=== PATIENT | female | born 1955 | race Caucasian/White ===

== ENCOUNTER → 2016-11-14 | Outpatient (REF) | payer MEDICARE ==
[~2016-11-14] MED LIST: /BACL20TA PO; /PANT40TA PO; ALLE25CA PO; CYAN1000VL; DULO20CA PO; EPIN0.3I6; NITR0.4S14; RAMI25CA; ROSU10TA2; SPIR50TA2; TRAZ100T PO; VITA1CAP40; XANA0.5T PO
== END ==
LOC: M LAB REF 12:23
PROVIDERS: ATTEND Internal Medicine
DX: D51.9 Vitamin B12 deficiency anemia, unspecified (principal)

== ENCOUNTER 2016-12-08 22:01 | Emergency (ER) | payer MEDICARE ==
[~2016-12-08] VITALS: Ht 165.1 cm; Wt 60.0 kg
[~2016-12-08 22:01] MED LIST changes: -CYAN1000VL; -EPIN0.3I6; -NITR0.4S14; -RAMI25CA; -ROSU10TA2; -SPIR50TA2; -VITA1CAP40
[2016-12-08] MEDS ORDERED: CYAN1000VL (22:18)
[2016-12-08] MEDS ORDERED: NITR0.4S14 (22:18)
[2016-12-08] MEDS ORDERED: VITA1CAP40 (22:18)
[2016-12-08] MEDS ORDERED: SPIR50TA2 (22:18)
[2016-12-08] MEDS ORDERED: ROSU10TA2 (22:18)
[2016-12-08] MEDS ORDERED: RAMI25CA (22:18)
[2016-12-08] MEDS ORDERED: EPIN0.3I6 (22:18)
[2016-12-08 23:07] LABS: BASO # 0.1 10^3/uL (0.0-0.2); BASO % 0.6 % (0.0-1.0); EOS # 0.3 10^3/uL (0.0-0.50); EOS % 2.4 % (0.0-3.0); IMMATURE GRANULOCYTE % 0.5 % (0-0); LYMPH % 14.8 % (24.0-44.0); MEAN CORPUSCULAR HEMOGLOBIN 32.9 pg (27.0-33.0); MEAN CORPUSCULAR HGB CONC 33.8 g/dl (32.0-36.5); MEAN CORPUSCULAR VOLUME 97.3 fl (80.0-96.0); MONO # 0.9 10^3/uL (0.0-0.8); MONO % 6.4 % (0.0-5.0); NEUTROPHILS # 10.3 10^3/uL (1.8-7.7); NEUTROPHILS % 75.3 % (36.0-66.0); PLATELET COUNT, AUTOMATED 214 10^3/uL (150-450); RED CELL DISTRIBUTION WIDTH 12.9 % (11.5-14.5); WHITE BLOOD COUNT 13.7 10^3/uL (4.0-10.0)
[2016-12-08 23:29] LABS: ANION GAP 6 MEQ/L (8-16); BLOOD UREA NITROGEN 10 MG/DL (7-18); CALCIUM LEVEL 8.3 MG/DL (8.8-10.2); CARBON DIOXIDE LEVEL 29 MEQ/L (21-32); CHLORIDE LEVEL 102 MEQ/L (98-107); CREATININE FOR GFR 0.64 MG/DL (0.55-1.02); GLOMERULAR FILTRATION RATE > 60.0 (>45); GLUCOSE, FASTING 157 MG/DL (80-110); POTASSIUM SERUM 3.2 MEQ/L (3.5-5.1); SODIUM LEVEL 137 MEQ/L (136-145)
[2016-12-08 23:54] VITALS: BP 98/56
== END 2016-12-08 23:56 | disposition home or self-care (01) ==
LOC: M ED 22:01 → EDBD 22:01 → EDSEX 22:01 → M ED 23:56
DX: F10.129 Alcohol abuse with intoxication, unspecified (principal); I25.10 Atherosclerotic heart disease of native coronary artery without angina pectoris; I10 Essential (primary) hypertension; K21.9 Gastro-esophageal reflux disease without esophagitis; E78.5 Hyperlipidemia, unspecified; Z95.5 Presence of coronary angioplasty implant and graft; Z79.899 Other long term (current) drug therapy; Z91.030 Bee allergy status; Z88.5 Allergy status to narcotic agent
CPT/HCPCS: 80048; 85025; 99284; G0480

== ENCOUNTER 2017-04-19 07:07 | Outpatient (CLI) | payer MEDICARE ==
[2017-04-19] MEDS: ZOLEDRONIC ACID 5 MG in APPROPRIATE DILUENT 1 EA IV (07:24)
== END 2017-04-19 08:10 | disposition home or self-care (01) ==
LOC: M INFU 07:07
DX: M81.8 Other osteoporosis without current pathological fracture (principal); G35 Multiple sclerosis; K44.9 Diaphragmatic hernia without obstruction or gangrene; F17.210 Nicotine dependence, cigarettes, uncomplicated; I25.2 Old myocardial infarction; Z79.899 Other long term (current) drug therapy; Z88.8 Allergy status to other drugs, medicaments and biological substances; Z88.5 Allergy status to narcotic agent; Z91.030 Bee allergy status; Z91.018 Allergy to other foods; Z87.442 Personal history of urinary calculi; Z95.5 Presence of coronary angioplasty implant and graft
CPT/HCPCS: J3489

== ENCOUNTER 2018-02-10 11:12 | Emergency (ER) | payer OTHER, MEDICARE | END 2018-02-10 12:28 | disposition home or self-care (01) | LOC: M ED 11:12 | DX: S60.222A Contusion of left hand, initial encounter (principal); S60.212A Contusion of left wrist, initial encounter; W01.0XXA Fall on same level from slipping, tripping and stumbling without subsequent striking against object, initial encounter; Y92.410 Unspecified street and highway as the place of occurrence of the external cause; F42.9 Obsessive-compulsive disorder, unspecified; F33.9 Major depressive disorder, recurrent, unspecified; F41.9 Anxiety disorder, unspecified; I25.2 Old myocardial infarction; Z95.5 Presence of coronary angioplasty implant and graft; Z79.899 Other long term (current) drug therapy; Z79.82 Long term (current) use of aspirin; Z88.5 Allergy status to narcotic agent; Z91.030 Bee allergy status; F17.210 Nicotine dependence, cigarettes, uncomplicated | CPT/HCPCS: 73110 ==

== ENCOUNTER 2018-07-23 06:52 | Outpatient (CLI) | payer MEDICARE ==
[~2018-07-23] VITALS: Ht 165.1 cm; Wt 60.0 kg
[~2018-07-23 06:52] MED LIST changes: -/BACL20TA PO; -/PANT40TA PO; +ASPI-222 PO; +BACL1TAB9 PO; +CYAN1000VL; +CYMB1CAP4 PO; -DULO20CA PO; +EPIN0.3I11; +NITR0.4S14; +PROT1TAB2 PO; +RAMI1CAP22; +ROSU10TA5; +SPIR50TA4; +VITA50005
[2018-07-23 07:00] VITALS: BP 136/71
[2018-07-23] MEDS ORDERED: ZOLEDRONIC ACID 5 MG in APPROPRIATE DILUENT 1 EA IV ONE (07:00)
[2018-07-23 08:10] VITALS: BP 141/81
== END 2018-07-23 08:10 | disposition home or self-care (01) ==
LOC: M INFU 06:52
PROVIDERS: ATTEND Internal Medicine
DX: M81.8 Other osteoporosis without current pathological fracture (principal)
CPT/HCPCS: 96365; J3489

== ENCOUNTER → 2019-04-29 | Outpatient (REF) | payer MEDICARE ==
[~2019-04-29] MED LIST changes: -ASPI-222 PO; +ASPI-527 PO; -ROSU10TA5; +ROSU10TA6
== END ==
LOC: M LAB REF 11:48
PROVIDERS: ATTEND Internal Medicine
DX: D51.9 Vitamin B12 deficiency anemia, unspecified (principal)

== ENCOUNTER 2019-08-01 13:45 | Outpatient (CLI) | payer MEDICARE ==
[~2019-08-01] VITALS: Ht 165.1 cm; Wt 60.0 kg
[2019-08-01] MEDS ORDERED: LORATADINE 10 MG TAB PO ONE (14:00)
[2019-08-01] MEDS ORDERED: ZOLEDRONIC ACID 5 MG in IV 1 EA IV ONE (14:00)
[2019-08-01] MEDS ORDERED: ACETAMINOPHEN 500 MG TAB PO ONE (14:00)
[2019-08-01 14:05] VITALS: BP 149/75
[2019-08-01] MEDS ORDERED: ZOLE5INJ IV (14:23)
[2019-08-01 15:00] VITALS: BP 166/78
== END 2019-08-01 15:00 | disposition home or self-care (01) ==
LOC: M INFU 13:45
PROVIDERS: ATTEND Internal Medicine
DX: M81.8 Other osteoporosis without current pathological fracture (principal)
CPT/HCPCS: 96365; J3489

== ENCOUNTER → 2020-02-10 | Outpatient (CLI) | payer MEDICARE ==
[~2020-02-10] MED LIST changes: +ZOLE5INJ IV
== END ==
LOC: M LABSMTC 13:35
PROVIDERS: ATTEND Pediatrics
DX: Z11.59 Encounter for screening for other viral diseases (principal)

== ENCOUNTER → 2020-11-22 | Outpatient (REF) | payer MEDICARE | LOC: M LAB REF 16:18 | PROVIDERS: ATTEND Internal Medicine | DX: D51.9 Vitamin B12 deficiency anemia, unspecified (principal) ==

== ENCOUNTER → 2020-12-13 | Outpatient (CLI) | payer MEDICARE ==
[~2020-12-13] MED LIST changes: +ALPR0.5T3 PO; +ASPI-255 PO; +AUGM500T34 PO; +BIOT10TA2 PO; +BUPR300T92 PO; +D31000TA2 PO; +EPIP0.3I2 IM; +ERGO500029 PO; +LOVA10TA PO; +MAGN250T22 PO; +PANT40TA29 PO; +RAMI1CAP22 PO; +SPIR-10 PO; +TRAZ-252 PO; +vitamin b12 SC
== END ==
LOC: M LABSMTC 09:26
PROVIDERS: ATTEND Anesthesiology
DX: Z01.812 Encounter for preprocedural laboratory examination (principal); Z20.822 Contact with and (suspected) exposure to COVID-19

== ENCOUNTER 2020-12-17 08:45 | Day surgery (SDC) | payer MEDICARE ==
[~2020-12-17] VITALS: Ht 160 cm; Wt 57.2 kg
[~2020-12-17 08:45] MED LIST changes: +NS 1,000 ML IV ONE
[2020-12-17] MEDS ORDERED: propofoL 500 MG/50 ML VIAL As Ordered ONE (09:29)
[2020-12-17] MEDS ORDERED: LIDOCAINE 2% 100MG/5ML SDV (FOR ANES.) As Ordered ONE (09:29)
[2020-12-17] MEDS ORDERED: fentaNYL 100 MCG/2 ML INJECTION (J3010) As Ordered ONE (09:29)
--- NOTE | 2020-12-17 10:17 | ROOR ---
Patient Name: Marjorie Jones Procedure Date: 12/17/2020 9:59 AM Date of : 1955 Age: 65 Room: [facility] Gender: Female Note Status: Finalized Procedure: Upper Endoscopy + Biopsies Indications: Heartburn, Exclusion of Christianson's esophagus Providers: Manjit Lynch MD Referring MD: Katherine HAMPTON MD Requesting Provider: Medicines: Monitored Anesthesia Care Complications: No immediate complications. Procedure: Pre-Anesthesia Assessment: - The heart rate, respiratory rate, oxygen saturations, blood pressure, adequacy of pulmonary ventilation, and response to care were monitored throughout the procedure. The Endoscope was introduced through the mouth, and advanced to the second part of duodenum. The upper GI endoscopy was accomplished without difficulty. The patient tolerated the procedure well. Findings: The Z-line was variable and was found 40 cm from the incisors. Multiple biopsies were obtained with cold forceps for evaluation to rule out Christianson's Esophagus randomly at the gastroesophageal junction. Localized minimal inflammation characterized by congestion (edema) and erythema was found in the gastric antrum. Biopsies were taken with a cold forceps for Helicobacter pylori testing. The exam of the duodenum was otherwise normal. Impression: - Z-line variable, 40 cm from the incisors. - Mucosal changes suspicious for gastritis. Biopsied. - Multiple biopsies were obtained at the gastroesophageal junction. - The examination was otherwise normal. Recommendation: - Patient has a contact number available for emergencies. The signs and symptoms of potential delayed complications were discussed with the patient. Return to normal activities tomorrow. Written discharge instructions were provided to the patient. - High fiber diet. - Discharge patient to home. - Continue present medications. - Await pathology results. - Telephone GI clinic for pathology results in 1 week. - Follow an antireflux regimen. - The findings and recommendations were discussed with the patient. Procedure Code(s): --- Professional --- 14967, Esophagogastroduodenoscopy, flexible, transoral; with biopsy, single or multiple Diagnosis Code(s): --- Professional --- K22.8, Other specified diseases of esophagus K31.89, Other diseases of stomach and duodenum R12, Heartburn CPT copyright 2019 [employer]. All rights reserved. The codes documented in this report are preliminary and upon computer networker review may be revised to meet current compliance requirements. Manjit Lynch MD Manjit Lynch MD 12/17/2020 10:17:03 AM Electronically signed by Manjit Lynch MD Number of Addenda: 0 Note Initiated On: 12/17/2020 9:59 AM Estimated Blood Loss: Estimated blood loss: none.
--- NOTE | 2020-12-17 10:52 | ROOR ---
Patient Name: Marjorie Jones Procedure Date: 12/17/2020 10:00 AM Date of : 1955 Age: 65 Room: [facility] Gender: Female Note Status: Finalized Procedure: Total Colonoscopy to Cecum + Biopsy Polypectomy Indications: High risk colon cancer surveillance: Personal history of colonic polyps, Last colonoscopy: 2014 Providers: Manjit Lynch MD Referring MD: Katherine HAMPTON MD Requesting Provider: Medicines: Monitored Anesthesia Care Complications: No immediate complications. Procedure: Pre-Anesthesia Assessment: - The heart rate, respiratory rate, oxygen saturations, blood pressure, adequacy of pulmonary ventilation, and response to care were monitored throughout the procedure. The Colonoscope was introduced through the anus and advanced to the cecum, identified by appendiceal orifice and ileocecal valve. The colonoscopy was performed without difficulty. The patient tolerated the procedure well. The quality of the bowel preparation was excellent. Findings: The perianal and digital rectal examinations were normal. Non-bleeding internal hemorrhoids were found during retroflexion. The hemorrhoids were small and Grade I (internal hemorrhoids that do not prolapse). Multiple small and large-mouthed diverticula were found in the recto-sigmoid colon, sigmoid colon and descending colon. Multiple sessile polyps were found in the hepatic flexure and at 30 cm proximal to the anus. The polyps were small in size. These polyps were removed with a jumbo cold forceps. Resection and retrieval were complete. The exam was otherwise without abnormality on direct and retroflexion views. Impression: - Non-bleeding internal hemorrhoids. - Diverticulosis in the recto-sigmoid colon, in the sigmoid colon and in the descending colon. - Multiple small polyps at the hepatic flexure and at 30 cm proximal to the anus, removed with a jumbo cold forceps. Resected and retrieved. - The examination was otherwise normal on direct and retroflexion views. - The exam was otherwise normal to the cecum. Recommendation: - Patient has a contact number available for emergencies. The signs and symptoms of potential delayed complications were discussed with the patient. Return to normal activities tomorrow. Written discharge instructions were provided to the patient. - High fiber diet. - Discharge patient to home. - Continue present medications. - Await pathology results. - Telephone GI clinic for pathology results in 1 week. - Repeat colonoscopy in 5 years for surveillance based on pathology results. - Return to referring physician. - The findings and recommendations were discussed with the patient. Procedure Code(s): --- Professional --- 35431, Colonoscopy, flexible; with biopsy, single or multiple Diagnosis Code(s): --- Professional --- Z86.010, Personal history of colonic polyps K64.0, First degree hemorrhoids K63.5, Polyp of colon K57.30, Diverticulosis of large intestine without perforation or abscess without bleeding CPT copyright 2019 [employer]. All rights reserved. The codes documented in this report are preliminary and upon polisher and buffer review may be revised to meet current compliance requirements. Manjit Lynch MD Manjit Lynch MD 12/17/2020 10:51:35 AM Electronically signed by Manjit Lynch MD Number of Addenda: 0 Note Initiated On: 12/17/2020 10:00 AM Estimated Blood Loss: Estimated blood loss: none.
[2020-12-17 11:12] VITALS: BP 132/75
== END 2020-12-17 11:16 | disposition home or self-care (01) ==
LOC: M OPP 08:45
PROVIDERS: ATTEND Internal Medicine Gastroenterology
DX: Z12.11 Encounter for screening for malignant neoplasm of colon (principal); Z86.010 Personal history of colon polyps; K63.5 Polyp of colon; K64.0 First degree hemorrhoids; K57.30 Diverticulosis of large intestine without perforation or abscess without bleeding; K22.89 Other specified disease of esophagus; K31.89 Other diseases of stomach and duodenum; R12 Heartburn; D89.2 Hypergammaglobulinemia, unspecified; D80.0 Hereditary hypogammaglobulinemia; G35 Multiple sclerosis; Z79.82 Long term (current) use of aspirin; Z79.899 Other long term (current) drug therapy; Z88.5 Allergy status to narcotic agent; Z91.030 Bee allergy status; Z91.048 Other nonmedicinal substance allergy status; F17.210 Nicotine dependence, cigarettes, uncomplicated
CPT/HCPCS: 43239; 45380; 88305; J3010

== ENCOUNTER → 2020-12-27 | Outpatient (CLI) | payer MEDICARE ==
[~2020-12-27] MED LIST changes: -NS 1,000 ML IV ONE
--- NOTE | 2020-12-27 12:20 | REPMRS ---
Patient History The patient states she had a clinical breast exam in November 2020. Patient is postmenopausal. No known family history of cancer. Took unspecified hormones for 6 months. 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 Moderna vaccines 04/2020 right arm, 05/2020 right arm. Patient states no breast complaints today. Patient has signed MRS History Sheet. Digital Woman Screen Mammo: December 27, 2020 - Exam #: [id number] Bilateral CC and MLO view(s) were taken. Technologist: RT Lennox Prior study comparison: May 09, 2012, bilateral bilat screen digital mammo, performed at [facility] ([facility]). June 07, 2010, bilateral screening mammogram, performed at [facility] ([facility]). FINDINGS: There are scattered fibroglandular densities. Screening. Digital screening (2D) mammography was performed bilaterally in the CC and MLO projections. Additionally, breast tomosynthesis (3D mammography) was performed bilaterally in the CC and MLO projections. Todays exam was compared to the prior exam/exams. By history, the patient has no complaints of a palpable breast abnormality or other significant breast complaints. The Volpara volumetric breast density category is B, there are scattered areas of fibroglandular densities. The breasts are unchanged in size and shape. There are no blane-soft tissue densities or spiculated masses. There is no internal architectural distortion. There are no suspicious blane-calcific clusters. Skin thickening or nipple retraction is not present. IMPRESSION: BI-RADS Category 2- Benign Findings. There is no evidence of malignant alteration of the breasts. Followup examination recommended in one year. The lifetime Tyrer-Cuzick score is 4.4 % This mammogram was read with the assistance of [employer],an FDA approved computer aided detection system for mammography. Negative x-ray reports should not delay surgical consultation if a dominant or clinically suspicious mass is present. Not all breast cancers can be identified by mammography. Therefore, we recommend that you continue to perform regular breast self-examination and physical examination and then promptly contact your physician of any concerns or changes. Adenosis and dense breasts may obscure an underlying neoplasm. No significant changes when compared with prior studies. Assessment: BI-RADS/ACR category 2 mammogram. Benign Findings. Recommendation Routine screening mammogram of both breasts in 1 year. Electronically Signed By: Yariel Mays MD 12/27/20 [id number]
== END ==
LOC: M WHC 07:58
PROVIDERS: ATTEND Internal Medicine
DX: Z12.31 Encounter for screening mammogram for malignant neoplasm of breast (principal)

== ENCOUNTER → 2021-03-08 | Outpatient (REF) | payer MEDICARE | LOC: M LAB REF 11:16 | PROVIDERS: ATTEND Internal Medicine | DX: D51.9 Vitamin B12 deficiency anemia, unspecified (principal) ==

== ENCOUNTER 2021-06-29 07:32 | Outpatient (CLI) | payer MEDICARE ==
[~2021-06-29] VITALS: Ht 163.8 cm; Wt 55.9 kg
[~2021-06-29 07:32] MED LIST changes: -D31000TA2 PO; +VITA100093 PO; +ZOLEDRONIC ACID 5 MG in IV 1 EA IV ONE
[2021-06-29 08:30] VITALS: BP 135/94
== END 2021-06-29 08:30 | disposition home or self-care (01) ==
LOC: M INFU 07:32
PROVIDERS: ATTEND Internal Medicine
DX: M81.0 Age-related osteoporosis without current pathological fracture (principal); Z88.8 Allergy status to other drugs, medicaments and biological substances
CPT/HCPCS: 96365; J3489

== ENCOUNTER → 2021-07-14 | Outpatient (CLI) | payer MEDICARE ==
[~2021-07-14] MED LIST changes: -ZOLEDRONIC ACID 5 MG in IV 1 EA IV ONE
== END ==
LOC: M RAD 07:06
PROVIDERS: ATTEND Internal Medicine
DX: R10.9 Unspecified abdominal pain (principal)

== ENCOUNTER → 2021-08-09 | Outpatient (CLI) | payer MEDICARE | LOC: M WHC 07:03 | PROVIDERS: ATTEND Internal Medicine | DX: N13.30 Unspecified hydronephrosis (principal) ==

== ENCOUNTER → 2021-08-16 | Outpatient (REF) | payer MEDICARE | LOC: M SFHCDERM 14:21 | PROVIDERS: ATTEND Nurse Practitioner Family | DX: L57.0 Actinic keratosis (principal) | CPT/HCPCS: 11102; 88305; G0463 ==

== ENCOUNTER → 2021-08-25 | Outpatient (REF) | payer MEDICARE | LOC: M LAB REF 11:33 | PROVIDERS: ATTEND Internal Medicine | DX: D51.9 Vitamin B12 deficiency anemia, unspecified (principal) ==

== ENCOUNTER → 2021-09-02 | Outpatient (CLI) | payer MEDICARE ==
[~2021-09-02] MED LIST changes: +ISOVUE-370 76% 100ML VIAL ONE
== END ==
LOC: M PLAIMG 07:48
PROVIDERS: ATTEND Internal Medicine
DX: N13.30 Unspecified hydronephrosis (principal)
CPT/HCPCS: 74177; Q9967

== ENCOUNTER → 2021-10-10 | Outpatient (CLI) | payer MEDICARE ==
[~2021-10-10] MED LIST changes: -ISOVUE-370 76% 100ML VIAL ONE; +PROHANCE 279.3MG/ML 15ML VIAL ONE
== END ==
LOC: M PLAIMG 07:54
PROVIDERS: ATTEND Internal Medicine
DX: N18.9 Chronic kidney disease, unspecified (principal); K86.89 Other specified diseases of pancreas
CPT/HCPCS: 74183; A9576

== ENCOUNTER → 2021-10-18 | Outpatient (REF) | payer MEDICARE ==
[~2021-10-18] MED LIST changes: -PROHANCE 279.3MG/ML 15ML VIAL ONE
[2021-10-19 14:09] LABS: LIPASE 140 U/L (73-393)
[2021-10-19 14:44] LABS: VITAMIN B12 LEVEL 562 PG/ML (247-911)
== END ==
LOC: M LAB REF 12:07
PROVIDERS: ATTEND Internal Medicine
DX: D51.9 Vitamin B12 deficiency anemia, unspecified (principal); R10.11 Right upper quadrant pain

== ENCOUNTER → 2021-10-19 | Outpatient (REF) | payer MEDICARE | LOC: M LAB REF 08:56 | PROVIDERS: ATTEND Internal Medicine | DX: R19.7 Diarrhea, unspecified (principal); R10.9 Unspecified abdominal pain ==

== ENCOUNTER → 2021-10-24 | Outpatient (REF) | payer MEDICARE | LOC: M LAB REF 08:18 | PROVIDERS: ATTEND Internal Medicine | DX: R19.7 Diarrhea, unspecified (principal) ==

== ENCOUNTER → 2022-05-03 | Outpatient (REF) | payer MEDICARE | LOC: M LAB REF 09:43 | PROVIDERS: ATTEND Internal Medicine | DX: R19.7 Diarrhea, unspecified (principal) ==

== ENCOUNTER 2022-07-04 15:18 | Outpatient (CLI) | payer MEDICARE ==
[~2022-07-04] VITALS: Ht 165.1 cm; Wt 56.0 kg
[2022-07-04] MEDS ORDERED: ZOLEDRONIC ACID 5 MG in IV 1 EA IV ONE (15:30)
[2022-07-04 15:36] VITALS: BP 140/85
[2022-07-04 16:08] VITALS: BP 143/83
== END 2022-07-04 16:05 | disposition home or self-care (01) ==
LOC: M INFU 15:18
PROVIDERS: ATTEND Internal Medicine
DX: M81.0 Age-related osteoporosis without current pathological fracture (principal)
CPT/HCPCS: 96365; J3489

== ENCOUNTER → 2022-09-27 | Outpatient (REF) | payer MEDICARE | LOC: M LAB REF 12:37 | PROVIDERS: ATTEND Internal Medicine | DX: D51.9 Vitamin B12 deficiency anemia, unspecified (principal) ==

== ENCOUNTER → 2022-09-28 | Outpatient (REF) | payer MEDICARE ==
[2022-09-28 18:46] LABS: C REACTIVE PROTEIN QUANTITATIV < 0.40 MG/DL (<1.0)
[2022-09-28 18:47] LABS: RHEUMATOID FACTOR QUANT < 3.5 IU/ML (<14)
[2022-09-30 23:06] LABS: ANTINUCLEAR ANTIBODIES DIRECT Negative (Negative); CYCLIC CITRULLINATED PEPTIDE 7 units (0-19)
== END ==
LOC: M LAB REF 17:12
PROVIDERS: ATTEND Internal Medicine
DX: I25.10 Atherosclerotic heart disease of native coronary artery without angina pectoris (principal); G35 Multiple sclerosis; M81.0 Age-related osteoporosis without current pathological fracture

== ENCOUNTER → 2022-09-29 | Outpatient (CLI) | payer MEDICARE | LOC: M RAD 07:32 | PROVIDERS: ATTEND Internal Medicine | DX: M25.551 Pain in right hip (principal); M25.552 Pain in left hip; M25.561 Pain in right knee; M25.562 Pain in left knee; M79.642 Pain in left hand; M79.641 Pain in right hand ==

== ENCOUNTER → 2023-08-23 | Outpatient (CLI) | payer MEDICARE ==
[~2023-08-23] MED LIST changes: +BUPR-597 PO; -BUPR300T92 PO; +GASTROGRAFIN SOLUTION 30ML As Ordered ONE; +ISOVUE-370 76% 100ML VIAL As Ordered ONE; -RAMI1CAP22; -RAMI1CAP22 PO; +RAMI2.5C42; +RAMI2.5C42 PO; -ROSU10TA6; +ROSU10TA61
== END ==
LOC: M RAD 09:07
PROVIDERS: ATTEND Internal Medicine
DX: R10.9 Unspecified abdominal pain (principal)
CPT/HCPCS: 74177; Q9963; Q9967

== ENCOUNTER → 2024-06-02 | Outpatient (CLI) | payer MEDICARE ==
[~2024-06-02] MED LIST changes: -GASTROGRAFIN SOLUTION 30ML As Ordered ONE; -ISOVUE-370 76% 100ML VIAL As Ordered ONE
== END ==
LOC: M WHC 07:44
PROVIDERS: ATTEND Internal Medicine
DX: M85.89 Other specified disorders of bone density and structure, multiple sites (principal)

== ENCOUNTER → 2025-02-11 | Outpatient (REF) | payer MEDICARE ==
[~2025-02-11] MED LIST changes: -BUPR-597 PO; +BUPR-766 PO; -ROSU10TA61; +ROSU10TA90
== END ==
LOC: M LAB REF 12:03
PROVIDERS: ATTEND Internal Medicine
DX: D51.9 Vitamin B12 deficiency anemia, unspecified (principal)